=== PATIENT | female | born 1945 | race Caucasian/White ===

== ENCOUNTER → 2017-09-25 | Outpatient (CLI) | payer MEDICARE, OTHER ==
[~2017-09-25] MED LIST: AMLO5TAB2 PO; ASCO100T12 PO; CYCL5TAB PO; DULO60CA44 PO; GABA-531 PO; HYDR25TA PO; HYDROCODONE/ACETA PO; MILK1CAP3 PO; MONT10TA24 PO; PREG50 PO
== END | disposition home or self-care (01) ==
LOC: RAH 09:27
PROVIDERS: ATTEND Family Medicine Adult Medicine
DX: M47.26 Other spondylosis with radiculopathy, lumbar region (principal)
CPT/HCPCS: 72148